=== PATIENT | female | born 1975 | race Caucasian/White ===

== ENCOUNTER 2019-02-11 06:19 | Day surgery (SDC) | payer MEDICAID ==
[2019-02-11 07:09] LABS: ADD MAN DIFF? NO
[2019-02-11 07:11] LABS: BASOPHIL # 0.1 10^3/ul (0.0-0.1); BASOPHILS % 0.4 % (0.0-2.0); EOSINOPHILS # 0.6 10^3/ul (0.0-0.5); EOSINOPHILS % 4.8 % (0.0-7.0); HEMATOCRIT 38.9 % (37.0-47.0); HEMOGLOBIN 13.3 g/dl (12.0-16.0); LYMPHOCYTES % 25.4 % (15.0-51.0); MEAN CORPUSCULAR HEMOGLOBIN 30.1 pg (29.0-33.0); MEAN CORPUSCULAR HGB CONC 34.2 g/dl (32.0-37.0); MEAN PLATELET VOLUME 11.9 fl (7.4-10.4); MONOCYTE # 0.8 10^3/ul (0.3-0.9); MONOCYTES % 6.4 % (0.0-11.0); NEUTROPHIL # 7.5 10^3/ul (1.6-7.5); NEUTROPHILS % 62.4 % (39.0-77.0); PLATELET COUNT 209 10^3/UL (140-415); RED BLOOD COUNT 4.42 10^6/ul (4.20-5.40); RED CELL DISTRIBUTION WIDTH 12.3 % (11.5-14.5)
[2019-02-11] MEDS ORDERED: LIDOCAINE 2% (SDV) 5 ML INJ (07:31)
[2019-02-11] MEDS ORDERED: PROPOFOL 40 ML (07:31)
[2019-02-11] MEDS ORDERED: FENTAnyl 50 MCG/ML VIAL (07:32)
[2019-02-11] MEDS ORDERED: ONDANSETRON 4 MG INJ (07:32)
[2019-02-11] MEDS ORDERED: CEFAZOLIN 1 GM INJ (07:32)
[2019-02-11] MEDS ORDERED: FAMOTIDINE 20 MG INJ (07:32)
[2019-02-11] MEDS ORDERED: MIDAZOLAM 1 MG/ML 2 ML INJ (07:32)
[2019-02-11] MEDS ORDERED: METOCLOPRAMIDE 10 MG INJ (08:04)
[2019-02-11] MEDS ORDERED: LABETALOL HCL 20MG INJ IV (08:30)
[2019-02-11] MEDS ORDERED: ALBUTEROL 0.083% (NEB) 2.5 MG/3 ML AMP HHN (08:30)
[2019-02-11] MEDS ORDERED: MEPERIDINE 25 MG INJ IV (08:30)
[2019-02-11] MEDS ORDERED: EPHEDrine 25 MG/5 ML SYG IV (08:30)
[2019-02-11] MEDS ORDERED: morphine 2 MG INJ IV ×2 (08:30)
[2019-02-11] MEDS ORDERED: DIPHENHYDRAMINE 50 MG INJ IV (08:30)
[2019-02-11] MEDS ORDERED: hydrALAzine 20 MG INJ IV (08:30)
[2019-02-11] MEDS ORDERED: HYDROmorphONE 1 MG/5 ML IV SYRINGE IV ×3 (08:30)
[2019-02-11] MEDS ORDERED: ONDANSETRON 4 MG INJ IV (08:30)
[2019-02-11] MEDS ORDERED: FENTAnyl 50 MCG/ML VIAL IV ×2 (08:30)
[2019-02-11] MEDS ORDERED: OXYCODONE/ACETAMINOPHEN (5/325) TAB PO ×2 (08:30)
[2019-02-11] MEDS ORDERED: KETOROLAC 30 MG INJ (08:32)
== END 2019-02-11 11:25 | disposition home or self-care (01) ==
LOC: SDS 06:19
DX: O02.1 Missed abortion (principal)
CPT/HCPCS: 59820; 85025; 86850; 86900; 86901; 88305